=== PATIENT | female | born 1980 | race Caucasian/White ===

== ENCOUNTER → 2019-08-13 | Outpatient (CLI) | payer MEDICAID ==
--- NOTE | 2019-08-13 13:42 | MM ---
Reason for exam: additional evaluation requested from abnormal screening. Last mammogram was performed less than 1 month ago. History: Taking hormonal contraceptives for 20 years. Physical Findings: Nurse did not find any significant physical abnormalities on exam. MG 3D Work Up W/Cad LORE Bilateral spot compression CC, spot compression MLO, and ML view(s) were taken. CC with magnification and LM with magnification view(s) were taken of the left breast. Prior study comparison: August 11, 2019, bilateral MG 3d screening mammo w/cad. June 13, 2017, bilateral MG 3d screening mammo w/cad. The breast tissue is heterogeneously dense. This may lower the sensitivity of mammography. The previously seen abnormality resolves on additional views and appears as fibroglandular tissue compatible with summation. Left upper outer quadrant focal asymmetry persists 7cm from nipple. Retroareolar 6mm upper outer quadrant mass at anterior depth. Ultrasound will be performed. These results were verbally communicated with the patient and result sheet given to the patient on 08/13/19. ASSESSMENT: Incomplete: need additional imaging evaluation, BI-RAD 0 RECOMMENDATION: Ultrasound of the left breast.
--- NOTE | 2019-08-13 13:48 | USB ---
Reason for exam: additional evaluation requested from abnormal screening. History: Taking hormonal contraceptives for 20 years. US Breast Workup Limited LT Technologist: Brittanie Tolbert Left limited breast ultrasound including focal area of concern, retroareolar and axilla demonstrates a 0.8 x 0.5 x 0.3cm oval lesion at 1 o'clock, smooth margins, faint post enhancement, probably benign, correlates with mammogram after BB placement, a 0.4 x 0.4 x 0.2cm cystic cluster of two lesions at 2 o'clock and a 0.5 x 0.8 x 0.5cm cystic cluster of two lesions at the posterior nipple, correlates with mammogram. These results were verbally communicated with the patient and result sheet given to the patient on 08/13/19. ASSESSMENT: Probably benign, BI-RAD 3 RECOMMENDATION: Ultrasound of the left breast in 6 months. (1 o'clock)
== END | disposition home or self-care (01) ==
LOC: RADMAMWWP 09:39
PROVIDERS: ATTEND Obstetrics & Gynecology
DX: R92.8 Other abnormal and inconclusive findings on diagnostic imaging of breast (principal)
CPT/HCPCS: 77062; 77066

== ENCOUNTER → 2020-02-19 | Outpatient (CLI) | payer MEDICAID ==
--- NOTE | 2020-02-19 10:32 | USB ---
Reason for exam: follow-up at short interval from prior study. History: Taking hormonal contraceptives for 20 years. Physical Findings: Nurse Summary: left breast 1 o'clock palpable 0.5 x 1cm, movable, non-tender (nurse ts). US Breast Limited LT Technologist: Brittanie Tolbert Left limited breast ultrasound including focal area of concern, retroareolar and axilla demonstrates a 0.5 x 0.5 x 0.4cm cystic cluster at 1 o'clock, a 0.4 x 0.4 x 0.3cm cystic lesion at 1 o'clock and a 0.8 x 0.6 x 0.3cm oval, cystic lesion at 2 o'clock. These results were verbally communicated with the patient and result sheet given to the patient on 02/19/20. ASSESSMENT: Benign, BI-RAD 2 RECOMMENDATION: Follow-up diagnostic mammogram of both breasts in 6 months. Ultrasound of the left breast in 6 months. Back on schedule for August 2020.
== END | disposition home or self-care (01) ==
LOC: RADUSWWP 08:53
PROVIDERS: ATTEND Obstetrics & Gynecology
DX: R92.8 Other abnormal and inconclusive findings on diagnostic imaging of breast (principal)

== ENCOUNTER → 2020-10-08 | Outpatient (CLI) | payer MEDICAID ==
--- NOTE | 2020-10-08 11:53 | MM ---
Reason for exam: additional evaluation requested from prior study. Last mammogram was performed 1 year and 2 months ago. History: Taking hormonal contraceptives for 20 years. Physical Findings: Nurse did not find any significant physical abnormalities on exam. MG 3D Diag Mammo W/Cad LORE Bilateral CC and MLO view(s) were taken. Prior study comparison: August 13, 2019, bilateral MG 3d work up w/cad LORE. August 11, 2019, bilateral MG 3d screening mammo w/cad. June 13, 2017, bilateral MG 3d screening mammo w/cad. The breast tissue is heterogeneously dense. This may lower the sensitivity of mammography. There is chronic nodularity in the left breast centrally left CC view middle depth and posteriorly. Left upper outer quadrant focal asymmetry is less pronounced. No significant new findings when compared with previous films. These results were verbally communicated with the patient and result sheet given to the patient on 10/08/20. ASSESSMENT: Benign, BI-RAD 2 RECOMMENDATION: Routine screening mammogram of both breasts in 1 year.
== END | disposition home or self-care (01) ==
LOC: RADMAMWWP 10:50
PROVIDERS: ATTEND Obstetrics & Gynecology
DX: R92.8 Other abnormal and inconclusive findings on diagnostic imaging of breast (principal)
CPT/HCPCS: 77062; 77066

== ENCOUNTER 2021-07-07 08:39 | Emergency (ER) | payer MEDICAID, OTHER ==
[2021-07-07 08:52] VITALS: TEMP 99.1
[2021-07-07] MEDS ORDERED: SODIUM CHLORIDE 0.9% 1,000 ML IV ONE (09:22)
[2021-07-07] MEDS ORDERED: SODIUM CHLORIDE 0.9% 500 ML 500 ML IV ONE (09:22)
[2021-07-07] MEDS ORDERED: ACETAMINOPHEN TAB 500 MG TAB PO STA (09:22)
--- NOTE | 2021-07-07 09:24 | ED ---
URI HPI - General Chief Complaint: Upper Respiratory Infection Stated Complaint: Covid + Time Seen by Provider: 07/07/21 08:41 Source: patient, RN notes reviewed Mode of arrival: ambulatory Limitations: no limitations - History of Present Illness Initial Comments: This a 41-year-old female presents emergency Department chief complaint of COVID-19. Patient has a positive today. Patient does have a history of asthma on steroids. Patient states that she does not feel well, complains of aches and pains. Patient states that she is here for monoclonal antibodies. Patient denies feeling extension short of breath and chest pain. - Related Data Home Medications Medication Instructions Recorded Confirmed Fluticasone/Salmeterol [Advair 1 puff INHALATION RT-DAILY 06/02/16 07/07/21 250-50 Diskus] Albuterol Inhaler [Ventolin Hfa 1 puff INHALATION RT-Q4H PRN 07/07/21 07/07/21 Inhaler] Cholecalciferol [Vitamin D3 (25 25 mcg PO DAILY 07/07/21 07/07/21 Mcg = 1000 Iu)] Quercetin 1 tab PO DAILY 07/07/21 07/07/21 Zinc 50 mg PO DAILY 07/07/21 07/07/21 Allergies Allergy/AdvReac Type Severity Reaction Status Date / Time No Known Allergies Allergy Verified 07/07/21 09:22 Review of Systems ROS Statement: Those systems with pertinent positive or pertinent negative responses have been documented in the HPI. ROS Other: All systems not noted in ROS Statement are negative. Past Medical History Past Medical History: Asthma History of Any Multi-Drug Resistant Organisms: None Reported Past Surgical History: Appendectomy, Section, Cholecystectomy Additional Past Surgical History / Comment(s): left lobe of liver removed Past Psychological History: No Psychological Hx Reported Smoking Status: Never smoker Past Alcohol Use History: Occasional Past Drug Use History: None Reported General Exam Limitations: no limitations General appearance: alert, in no apparent distress Head exam: Present: atraumatic, normocephalic, normal inspection Eye exam: Present: normal appearance, PERRL, EOMI. Absent: scleral icterus, conjunctival injection, periorbital swelling ENT exam: Present: normal exam, normal oropharynx, mucous membranes moist Neck exam: Present: normal inspection, full ROM. Absent: tenderness, meni ngismus, lymphadenopathy Respiratory exam: Present: normal lung sounds bilaterally. Absent: respiratory distress, wheezes, rales, rhonchi, stridor Cardiovascular Exam: Present: regular rate, normal rhythm, normal heart sounds. Absent: systolic murmur, diastolic murmur, rubs, gallop, clicks Course Vital Signs 07/07/21 07/07/21 07/07/21 08:47 08:52 10:11 Temperature 99.1 F Pulse Rate 135 H Respiratory 18 Rate Blood Pressure 194/119 191/127 O2 Sat by Pulse 100 Oximetry 07/07/21 07/07/21 07/07/21 11:06 11:33 11:42 Temperature Pulse Rate 97 Respiratory 20 Rate Blood Pressure 210/130 193/125 171/121 O2 Sat by Pulse 100 Oximetry 07/07/21 12:12 Temperature Pulse Rate Respiratory Rate Blood Pressure 170/103 O2 Sat by Pulse Oximetry Medical Decision Making - Medical Decision Making Patient is coated positive did receive medical advice be discharged stable condition. Disposition Clinical Impression: COVID-19 Disposition: HOME SELF-CARE Condition: Stable Instructions (If sedation given, give patient instructions): Coronavirus Dis ease 2019 (COVID-19) Additional Instructions: Please return to the Emergency Department if symptoms worsen or any other concerns. Is patient prescribed a controlled substance at d/c from ED?: No Referrals: Dionte Trejo DO [Primary Care Provider] - 1-2 days Time of Disposition: 12:25
[2021-07-07] MEDS ORDERED: CASIRIVIMAB (REGN10933) (EUA) 600 MG, IMDEVIMAB (REGN10987) (EUA) 600 MG in SODIUM CHLO... IVPB ONE (09:30)
[2021-07-07] MEDS ORDERED: SODIUM CHLORIDE 0.9% 50 ML IVPB ONE (09:30)
[2021-07-07 11:07] VITALS: PULSE 97; RESP 20
[2021-07-07] MEDS ORDERED: hydrALAZINE HCL 20 MG/ML 1 ML VIAL IVP STA ×2 (11:15→11:47)
[2021-07-07 12:13] VITALS: BP 170/103
== END 2021-07-07 12:30 | disposition home or self-care (01) ==
LOC: EC 08:39
DX: Z86.16 Personal history of COVID-19 (principal); J45.909 Unspecified asthma, uncomplicated; Z79.51 Long term (current) use of inhaled steroids
CPT/HCPCS: 99283; 96374; 96361; 96376; J0360; Q0244

== ENCOUNTER → 2021-07-07 | Outpatient (CLI) | payer MEDICAID, OTHER | END | disposition home or self-care (01) | LOC: LABWHC1 06:21 | PROVIDERS: ATTEND Emergency Medicine | DX: U07.1 COVID-19 (principal) | CPT/HCPCS: 87635 ==

== ENCOUNTER → 2024-09-26 | Outpatient (CLI) | payer BC ==
--- NOTE | 2024-09-26 12:33 | MM ---
Reason for Exam: Screening (asymptomatic). Last mammogram was performed 2 year(s) and 1 month(s) ago. Patient History: Menarche at age 12. First Full-Term at age 24. Patient has history of breast feeding. Currently using Hormonal Contraceptives, for 20 years. Risk Values: Vicky 5 year model risk: 0.9%. NCI Lifetime model risk: 9.6%. Prior Study Comparison: 08/13/2019 Bilateral Diagnostic Mammogram, [facility]. 10/08/2020 Bilateral Diagnostic Mammogram, [facility]. 08/18/2022 Bilateral MG 3D screening mammo w/cad, [facility]. Tissue Density: The breasts are heterogeneously dense, which may obscure small masses. Findings: Analyzed By CAD. There is a 10 mm nodular density in the lower inner margin of the right breast. No suspicious grouped calcifications. Overall Assessment: Incomplete: need additional imaging evaluation, BI-RAD 0 Management: Special View Mammogram of the right breast. . Patient should continue monthly self-breast exams. A clinical breast exam by your physician is recommended on an annual basis. This exam should not preclude additional follow-up of suspicious palpable abnormalities. Note on Vicky scores and lifetime risk: 1. A Vicky score greater than 3% is considered moderate risk. If this is the case, consider specialist referral to assess eligibility for a risk reducing agent. 2. If overall lifetime risk for the development of breast cancer is 20% or higher, the patient may qualify for future screening with alternating mammogram and breast MRI. [facility], , 09/26/2024 12:31 PM. Electronically signed and approved by: Jordin Whitfield M.D. Radiologis
== END | disposition home or self-care (01) ==
LOC: RADMAMWWP 11:21
PROVIDERS: ATTEND Obstetrics & Gynecology
DX: Z12.31 Encounter for screening mammogram for malignant neoplasm of breast (principal); R92.333 Mammographic heterogeneous density, bilateral breasts; Z92.0 Personal history of contraception
CPT/HCPCS: 77063; 77067

== ENCOUNTER → 2024-10-01 | Outpatient (CLI) | payer BC ==
--- NOTE | 2024-10-01 07:39 | MM ---
Reason for Exam: Additional evaluation requested from abnormal screening. Last screening mammogram was performed less than 1 month ago. Patient History: Menarche at age 12. First Full-Term at age 24. Patient has history of breast feeding. Currently using Hormonal Contraceptives, for 20 years. Risk Values: Vicky 5 year model risk: 0.9%. NCI Lifetime model risk: 9.6%. Tissue Density: Right: The breasts are heterogeneously dense, which may obscure small masses. Findings: Analyzed By CAD. Persistent nodule lower inner quadrant right breast 8.3 mm in size and 4.3 cm from the nipple. Ultrasound recommended. Overall Assessment: Incomplete: need additional imaging evaluation, BI-RAD 0 Management: Diagnostic Breast Ultrasound of the right breast. . Results were given to the patient verbally at the time of exam. Patient should continue monthly self-breast exams. A clinical breast exam by your physician is recommended on an annual basis. This exam should not preclude additional follow-up of suspicious palpable abnormalities. Note on Vicky scores and lifetime risk: 1. A Vicky score greater than 3% is considered moderate risk. If this is the case, consider specialist referral to assess eligibility for a risk reducing agent. 2. If overall lifetime risk for the development of breast cancer is 20% or higher, the patient may qualify for future screening with alternating mammogram and breast MRI. [facility], , 10/01/2024 7:37 AM. Electronically signed and approved by: Jf Hall M.D. Radiologis
--- NOTE | 2024-10-01 07:58 | USB ---
Reason for Exam: Additional evaluation requested from abnormal screening. Patient History: Menarche at age 12. First Full-Term at age 24. Patient has history of breast feeding. Currently using Hormonal Contraceptives, for 20 years. Risk Values: Vicky 5 year model risk: 0.9%. NCI Lifetime model risk: 9.6%. Technique: Method: Targeted. Prior Study Comparison: 10/08/2020 Bilateral Diagnostic Mammogram, [facility]. 08/18/2022 Bilateral MG 3D screening mammo w/cad, [facility]. 09/26/2024 Bilateral MG 3D screening mammo w/cad, [facility]. Findings: The lower inner quadrant of the right breast, the axilla of the right breast and the retroareolar of the right breast were scanned. Simple cyst noted at the right 3:00 position measuring 7 x 5 x 6 mm. No solid masses identified.. Overall Assessment: Benign, BI-RAD 2 Management: Screening Mammogram of both breasts in 1 year. A clinical breast exam by your physician is recommended on an annual basis and results should be correlated with mammographic findings. This exam should not preclude additional follow-up of suspicious palpable abnormalities. Results were given to the patient verbally at the time of exam. [facility], , 10/01/2024 7:55 AM. Electronically signed and approved by: Jf Hall M.D. Radiologis
== END | disposition home or self-care (01) ==
LOC: RADMAMWWP 07:18
PROVIDERS: ATTEND Obstetrics & Gynecology
DX: R92.8 Other abnormal and inconclusive findings on diagnostic imaging of breast (principal); R92.333 Mammographic heterogeneous density, bilateral breasts; Z79.3 Long term (current) use of hormonal contraceptives
CPT/HCPCS: 77061; 77065